=== PATIENT | female | born 2000 | race Caucasian/White ===

== ENCOUNTER 2018-12-25 21:28 | Emergency (ER) | payer OTHER ==
[2018-12-25] MEDS ORDERED: DEXAMETHASONE 4 MG TAB PO ONE (21:50)
[2018-12-25] MEDS ORDERED: AMOXICILLIN/CLAVULANATE POT 875/125 MG TAB PO ONE (22:49)
--- NOTE | 2018-12-25 22:52 | EDPHY ---
H & P Time Seen by Provider: 12/25/18 21:44 HPI/ROS: Chief complaint: Sore throat History of present illness: This is a 18-year-old female who presents to the emergency department for evaluation of a sore throat. She reports the onset of symptoms 3 days ago. She was seen in urgent care. She was discharged home with symptomatic care. She feels symptoms have been worsening. She has some trouble swallowing. No fevers. No cough. No shortness of breath. No rash. No headache or neck pain. No body aches. She did have strep throat 3 weeks ago , she was treated with a Z-Cedrick and resolved. Smoking Status: Never smoked Physical Exam: General Appearance: Alert, nontoxic. Eyes: Pupils equal and round no injection. ENT: Tympanic membranes, external auditory canals, external ears and surrounding soft tissue including over the mastoids are unremarkable. Nasopharynx is injected. There is no rhinorrhea. Oropharynx is injected. There is no edema. Tonsils are enlarged with exudate, right slightly greater than left. The uvula is midline. No elevation of the tongue. There is no hoarseness, no drooling, no trismus, no stridor. Respiratory: Chest is non tender, lungs are clear to auscultation. Cardiac: regular rate and rhythm Gastrointestinal: Abdomen is soft and non tender, no masses, bowel sounds normal. Musculoskeletal: Neck is supple and non tender. Extremities have full range of motion and are non tender. Skin: No rashes or lesions. [ ] DIFFERENTIAL DIAGNOSIS: After history and physical exam differential diagnosis was considered for [ ] Constitutional: Initial Vital Signs Temperature (C) 36.9 C 12/25/18 21:31 Heart Rate 107 H 12/25/18 21:31 Respiratory Rate 16 12/25/18 21:31 Blood Pressure 109/69 12/25/18 21:31 O2 Sat (%) 96 12/25/18 21:31 O2 Delivery Mode Room Air Allergies/Adverse Reactions: No Known Allergies Allergy (Unverified 12/25/18 21:31) Home Medications: Medication Instructions Recorded Amoxicillin/Clavulanate Pot 875 mg PO BID #14 tab 12/25/18 [Augmentin 875 MG TAB (*)] Bcp 12/25/18 Dexamethasone [Decadron 4 MG (*)] 4 mg PO ONCE #1 tab 12/25/18 MDM/Departure - MDM Medications Given: Discontinued Medications Amoxicillin/Clavulanate Potassium (Augmentin 875mg) 875 mg PO EDNOW ONE PRN Reason: Protocol Stop: 12/25/18 22:50 Last Admin: 12/25/18 22:56 Dose: 875 mg Dexamethasone (Decadron) 10 mg PO EDNOW ONE Stop: 12/25/18 21:51 Last Admin: 12/25/18 22:13 Dose: 10 mg ED Course/Re-evaluation: Patient seen under the supervision of my secondary supervising physician Dr. Aida Mclean. Patient presents to the emergency department with progressively worsening sore throat. She appears to have a tonsillitis, right slightly greater than left. I do not believe this represents a significant abscess at this time. She is controlling her oral secretions, talking and breathing without difficulty. Started on Augmentin. She is given Decadron and will have a prescription for a 1 time 2nd dose tomorrow. She is to follow up with ENT for recheck. Strict return precautions are given. Patient voiced understanding and agreement with plan. Differential Diagnosis: Included but not limited to pharyngitis, strep pharyngitis, tonsillitis, abscess formation - Depart Disposition: Home, Routine, Self-Care Clinical Impression: Tonsillitis Condition: Good Instructions: Tonsillitis (ED) Additional Instructions: Follow-up with an Ears Nose and Throat doctor for continued care You can use ibuprofen 600 mg every 8 hr for the next 2-3 days Take antibiotics as prescribed until finished Take your next dose of Decadron tomorrow night If symptoms worsen or new symptoms develop return to the emergency room for recheck Stand Alone Forms: School Excuse Prescriptions: Amoxicillin/Clavulanate Pot [Augmentin 875 MG TAB (*)] 875 mg PO BID #14 tab Dexamethasone [Decadron 4 MG (*)] 4 mg PO ONCE #1 tab Referrals: NONE *PRIMARY CARE P,. [Primary Care Provider] - As per Instructions Benoit Hopper MD [Medical Doctor] - As per Instructions [facility] [Clinic] - As per Instructions
[2018-12-25 23:02] VITALS: BP 110/74
== END 2018-12-25 23:01 | disposition home or self-care (01) ==
DX: J03.90 Acute tonsillitis, unspecified (principal)